=== PATIENT | female | born 1995 | race African-American/Black ===

== ENCOUNTER 2017-02-12 10:32 | Emergency (ER) | payer MEDICAID ==
[~2017-02-12] VITALS: Ht 152.4 cm; Wt 110.0 kg
[2017-02-12] MEDS: KETOROLAC 30MG/ML VIAL IM ONE (11:55)
[2017-02-12 12:25] LABS: CLARITY URINE CLEAR (CLEAR); COLOR URINE YELLOW (YELLOW); GLUCOSE URINE 3+ (NEGATIVE); KETONES URINE TRACE (NEGATIVE); LEUKOCYTE ESTERASE URINE TRACE (NEGATIVE); NITRITE URINE NEGATIVE (NEGATIVE); OCCULT BLOOD URINE NEGATIVE (NEGATIVE); PROTEIN URINE NEGATIVE (NEGATIVE); SPECIFIC GRAVITY URINE 1.046 (1.005-1.030); UROBILINOGEN URINE 0.2 E.U./dL (0.2-1.0)
[2017-02-12 13:25] VITALS: BP 129/75
== END 2017-02-12 14:07 | disposition home or self-care (01) ==
LOC: ER 10:32
DX: B37.3 Candidiasis of vulva and vagina (principal); N39.0 Urinary tract infection, site not specified; I10 Essential (primary) hypertension; F17.210 Nicotine dependence, cigarettes, uncomplicated
CPT/HCPCS: 81001; 81025; 87210; 96372; 99284; J1885; Z7610

== ENCOUNTER 2017-05-15 22:50 | Emergency (ER) | payer MEDICAID ==
[~2017-05-15] VITALS: Ht 152.4 cm; Wt 82.0 kg
[2017-05-16 00:08] VITALS: BP 168/89
== END 2017-05-16 01:45 | disposition home or self-care (01) ==
LOC: ER 05-16 00:08
DX: J02.8 Acute pharyngitis due to other specified organisms (principal); B97.89 Other viral agents as the cause of diseases classified elsewhere; E11.9 Type 2 diabetes mellitus without complications; Z79.4 Long term (current) use of insulin; Z79.84 Long term (current) use of oral hypoglycemic drugs
CPT/HCPCS: 87070; 87430; 99284

== ENCOUNTER 2017-10-24 15:38 | Emergency (ER) | payer MEDICAID ==
[~2017-10-24] VITALS: Ht 152.4 cm; Wt 100.6 kg
[2017-10-24 15:53] VITALS: BP 180/82
[2017-10-24 17:00] LABS: CLARITY URINE CLEAR (CLEAR); COLOR URINE YELLOW (YELLOW); KETONES URINE NEGATIVE (NEGATIVE); LEUKOCYTE ESTERASE URINE 1+ (NEGATIVE); NITRITE URINE NEGATIVE (NEGATIVE); OCCULT BLOOD URINE TRACE (NEGATIVE); PH URINE 5.5 (4.5-8.0); PROTEIN URINE NEGATIVE (NEGATIVE); SPECIFIC GRAVITY URINE 1.041 (1.005-1.030); UROBILINOGEN URINE 0.2 E.U./dL (0.2-1.0)
[2017-10-24] MEDS ORDERED: IBUPROFEN 600MG TABLET PO ONE (20:30)
[2017-10-24] MEDS ORDERED: ACETAMINOPHEN WITH CODEINE 300/30MG TABLET PO ONE (20:30)
== END 2017-10-24 21:05 | disposition home or self-care (01) ==
LOC: ER 16:04
DX: N76.0 Acute vaginitis (principal); B00.9 Herpesviral infection, unspecified; N39.0 Urinary tract infection, site not specified; E11.9 Type 2 diabetes mellitus without complications; F17.200 Nicotine dependence, unspecified, uncomplicated; F12.10 Cannabis abuse, uncomplicated
CPT/HCPCS: 81003; 81025; 99283

== ENCOUNTER 2022-05-21 19:33 | Emergency (ER) | payer MEDICAID, OTHER ==
[~2022-05-21] VITALS: Ht 157.5 cm; Wt 100.0 kg
[~2022-05-21 19:33] MED LIST: AMOX1TAB16 MT; ATOR10TA PO; INSU100I28 SQ; INSU100V34 SQ; SULF-13 MT
[2022-05-21] MEDS ORDERED: ONDANSETRON HCL 4MG/2ML INJ IV STA (20:57)
[2022-05-21] MEDS ORDERED: SODIUM CHLORIDE 0.9% 1,000 ML IV ONE (21:00)
[2022-05-21] MEDS ORDERED: DIPHENHYDRAMINE 50MG/ML VIAL IV ONE (22:15)
[2022-05-21] MEDS ORDERED: MORPHINE SULFATE 4 MG/ML CPJ (NOT FOR IM USE) IV ONE (22:15)
[2022-05-21] MEDS ORDERED: METOCLOPRAMIDE HCL 10MG/2ML VIAL IV ONE (22:15)
[2022-05-21 22:25] LABS: BASOPHILS % 0.7 % (0.0-2.0); EOSINOPHILS % 0.7 % (0.0-5.0); HEMATOCRIT. 46.4 % (36.0-48.0); HEMOGLOBIN. 15.6 g/dL (12.0-16.0); LYMPHOCYTES % 19.4 % (20.0-50.0); MEAN CORPUSCULAR HEMOGLOBIN 29.5 pg (28.0-32.0); MEAN CORPUSCULAR VOLUME 87.5 fL (81.0-99.0); MEAN PLATELET VOLUME 10.7 fl (7.4-10.4); MONOCYTES % 5.2 % (2.0-8.0); PLATELET 254 x1000/uL (130-400); RED CELL DISTRIBUTION WIDTH 13.1 % (11.6-14.6)
[2022-05-21 22:38] LABS: CHLORIDE 102 mEq/L (98-107)
[2022-05-21] MEDS ORDERED: FAMOTIDINE 20MG/2ML VIAL IV ONE (22:45)
[2022-05-21 22:49] LABS: ETHANOL BLOOD < 10 mg/dL
[2022-05-21 23:04] LABS: HCG SCREEN NEGATIVE
[2022-05-22 00:18] LABS: PROTHROMBIN TIME 10.6 sec (9.6-11.0)
[2022-05-22] MEDS ORDERED: SODIUM CHLORIDE 0.9% 1,000 ML IV ONE (00:45)
[2022-05-22] MEDS ORDERED: PROT40 MT (02:28)
[2022-05-22] MEDS ORDERED: METO5TAB86 MT (02:28)
[2022-05-22 03:49] LABS: CLARITY URINE CLEAR (CLEAR); COLOR URINE YELLOW (YELLOW); KETONES URINE 3+ (NEGATIVE); LEUKOCYTE ESTERASE URINE 1+ (NEGATIVE); NITRITE URINE NEGATIVE (NEGATIVE); OCCULT BLOOD URINE 1+ (NEGATIVE); PROTEIN URINE TRACE (NEGATIVE); SPECIFIC GRAVITY URINE 1.039 (1.005-1.030); UROBILINOGEN URINE 0.2 E.U./dL (0.2-1.0)
[2022-05-22 04:36] LABS: *BARBITURATES SCREEN URINE NEGATIVE (NEGATIVE); *BENZODIAZEPINES SCREEN URINE NEGATIVE (NEGATIVE); *COCAINE SCREEN URINE NEGATIVE (NEGATIVE); METHADONE URINE SCREEN NEGATIVE (NEGATIVE); PHENCYCLIDINE URINE SCREEN NEGATIVE (NEGATIVE)
[2022-05-22 04:50] LABS: *AMPHETAMINES SCREEN URINE PRESUMTIVE POSITIVE (NEGATIVE); CANNABINOID URINE SCREEN PRESUMTIVE POSITIVE (NEGATIVE); OPIATES URINE SCREEN PRESUMTIVE POSITIVE (NEGATIVE)
[2022-05-22] MEDS ORDERED: CEPH500C2 MT (04:53)
[2022-05-22 06:10] VITALS: BP 110/52
== END 2022-05-22 06:10 | disposition home or self-care (01) ==
LOC: ER 19:44 → CANBEDREQ 05-22 09:50
DX: R10.13 Epigastric pain (principal); E11.9 Type 2 diabetes mellitus without complications
CPT/HCPCS: 36415; 74176; 80053; 80305; 80320; 81003; 82962; 83690; 84443; 84703; 85025; 85610; 86850; 86900; 86901; 87077; 87086; 87186; 96361; 96374; 96375; 99285; J1200; J2270; J2405; J2765; J3490; J7030; G0480

== ENCOUNTER 2022-09-12 10:57 | Emergency (ER) | payer MEDICAID ==
[~2022-09-12] VITALS: Ht 154.9 cm; Wt 100.0 kg
[~2022-09-12 10:57] MED LIST changes: +CEPH500C2 MT; +METO5TAB86 MT; +PROT40 MT
[2022-09-12] MEDS ORDERED: ONDANSETRON HCL 4MG/2ML INJ IV STA (11:28)
[2022-09-12] MEDS ORDERED: SODIUM CHLORIDE 0.9% 1,000 ML IV ONE (11:30)
[2022-09-12 12:28] LABS: BASOPHILS % 1.2 % (0.0-2.0); EOSINOPHILS % 0.1 % (0.0-5.0); HEMATOCRIT. 46.9 % (36.0-48.0); HEMOGLOBIN. 15.9 g/dL (12.0-16.0); LYMPHOCYTES % 22.4 % (20.0-50.0); MEAN CORPUSCULAR HEMOGLOBIN 29.6 pg (28.0-32.0); MEAN CORPUSCULAR VOLUME 87.1 fL (81.0-99.0); MONOCYTES % 5.6 % (2.0-8.0); NEUTROPHILS % 70.7 % (40.0-76.0); PLATELET 262 x1000/uL (130-400); RED BLOOD CELL COUNT 5.38 mill/uL (4.2-5.4); RED CELL DISTRIBUTION WIDTH 14.2 % (11.6-14.6)
[2022-09-12 12:38] LABS: CHLORIDE 108 mEq/L (98-107); HCG SCREEN NEGATIVE
[2022-09-12 12:48] LABS: BETA HYDROXYBUTYRATE 3.9 mMol/L (0.0-0.3); ETHANOL BLOOD < 10 mg/dL
[2022-09-12] MEDS ORDERED: DIPHENHYDRAMINE 50MG/ML VIAL IV ONE (13:30)
[2022-09-12] MEDS ORDERED: MORPHINE SULFATE 2 MG/ML CPJ (NOT FOR IM USE) IV ONE (13:30)
[2022-09-12] MEDS ORDERED: HALOPERIDOL LACTATE 5MG/ML VIAL IM ONE (13:30)
[2022-09-12 13:37] LABS: BG BASE EXCESS -4.5 mmol/L (-2.0-2.0); BG CARBOXYHEMOGLOBIN 1.4 % (0.5-1.5); BG DEOXYHEMOGLOBIN 2.2 % (0.0-5.0); BG FRACTION INSPIRED OXYGEN 21; BG HCO3 ACT 16.9 mmol/L (22.0-26.0); BG METHEMOGLOBIN 0.1 % (0.0-1.5); BG OXYGEN SATURATION 97.8 % (92.0-98.5); BG OXYHEMOGLOBIN 96.3 % (94.0-97.0); BG PCO2 23.7 mmHg (35.0-45.0); BG PO2 95.9 mmHg (75.0-100.0); BG SAMPLE SITE RIGHT RADIAL; BG TOTAL HEMOGLOBIN 16.3 g/dL (12.0-18.0); BG VENT MODE ROOM AIR
[2022-09-12 16:00] VITALS: BP 139/89
== END 2022-09-12 16:55 | disposition home or self-care (01) ==
LOC: ER 11:14
DX: E11.65 Type 2 diabetes mellitus with hyperglycemia (principal); R11.2 Nausea with vomiting, unspecified; Z87.891 Personal history of nicotine dependence; F12.10 Cannabis abuse, uncomplicated
CPT/HCPCS: 36415; 36600; 80053; 80320; 82010; 82375; 82805; 82962; 83690; 84703; 85025; 96361; 96372; 96374; 96375; 99284; J1200; J1630; J2270; J2405; J7030; Z7610; G0480

== ENCOUNTER 2024-04-21 00:30 | Emergency (ER) | payer MEDICAID ==
[~2024-04-21] VITALS: Ht 152.4 cm; Wt 98.6 kg
[2024-04-21 00:47] VITALS: O2SAT 96
[2024-04-21 00:49] VITALS: BP 176/117; PULSE 120; RESP 18; TEMP 98.9; O2SAT 100
== END 2024-04-21 04:57 | disposition left against medical advice (07) ==
LOC: ER 00:37
DX: L02.415 Cutaneous abscess of right lower limb (principal); Z53.21 Procedure and treatment not carried out due to patient leaving prior to being seen by health care provider